=== PATIENT | female | born 1990 | race Caucasian/White ===

== ENCOUNTER 2019-09-21 00:27 | Emergency (ER) | payer BC ==
[2019-09-21 01:27] LABS: #Basophils 0.1 thou/uL (0.0-0.2); #Eosinphils 0.3 thou/uL (0.0-0.7); #Lymphocytes 3.6 thou/uL (1.20-3.40); #Monocytes 0.5 thou/uL (0.11-0.59); #Neutrophils 6.2 thou/uL (1.40-6.50); %Basophils 0.8 % (0.0-1.0); %Eosinophils 2.4 % (0.0-10.0); %Monocytes 4.6 % (0.0-10.0); %Neutrophils 58.2 % (42.0-75.0); Hemoglobin 12.4 g/dL (12.0-16.0); Mean Corpuscular Hemoglobin 30.5 pg (27.0-31.0); Mean Corpuscular Volume 92.6 fL (78.0-98.0); Mean Platelet Volume 7.1 fL (7.4-10.4); Platelet Count 292 thou/uL (130-400); Red Blood Cell (RBC) Count 4.06 mill/uL (4.20-5.40); White Blood Cell (WBC) Count 10.6 thou/uL (4.8-10.8)
[2019-09-21 01:49] LABS: Anion Gap 10 mmol/L (10-20); BUN (Urea Nitrogen) 6 mg/dL (7.0-18.7); Calc. Creatinine Clearance 0 mL/min (70-130); Calcium 9.1 mg/dL (7.8-10.44); Carbon Dioxide 25 mmol/L (22-29); Chloride 107 mmol/L (98-107); Estimated GFR-MDRD Greater than 90; Glucose 84 mg/dL (70-105); Potassium 3.5 mmol/L (3.5-5.1); Sodium 138 mmol/L (136-145)
[2019-09-21 02:35] LABS: Bacteria/HPF None Seen HPF (None Seen); Bilirubin Negative (Negative); Blood, Urine 1+ (Negative); Clarity Turbid (Clear); Glucose, Urine (Dipstick) Normal (Negative); Leukocyte Negative Leu/uL (Negative); Nitrite Negative (Negative); Protein, Urine (Dipstick) Negative (Neg-Trace); RBC/HPF 0-3 HPF (0-3); Squamous Epithelial 0-3 HPF (0-3); Urobilinogen Normal mg/dL (Less than 2); WBC/HPF 0-3 HPF (0-3)
--- NOTE | 2019-09-21 09:08 | ULT ---
PRELIMINARY REPORT/[facility]/EMERGENCY AFTER HOURS PROCEDURE: PROCEDURE INFORMATION: Exam: US , Limited Exam date and time: 09/21/2019 1:38 AM Clinical history: 29 years old, female; Lmp or gestational age (in weeks): 03/27/20; Antepartum compli cations; Hemorrhage; complicated by abdominal or pelvic pain; Lower; Second trimester; Gest ational age or lmp: 13w1d; ; Patient HX: Pelvic cramping pain tonight, light vaginal bleeding TECHNIQUE: Imaging protocol: Real-time ultrasound of the maternal uterus with image documentation. Exam focused on the clinical indication. COMPARISON: No relevant prior studies available. FINDINGS: GESTATION: Gestation: Single living intrauterine gestation. Yolk sac visualized. Heart rate: heart rate 157 beats per minute. Placenta: Posterior placenta. Placental tip 1.8 cm from the internal cervical os. Small avascular hypoechoic area under the placenta likely represents a small subchorionic hematoma. BIOMETRY: Estimated gestational age: Estimated gestational age by ultrasound 13 weeks and 1 day. Gestational age by LMP 13 weeks and 0 days. Size and dates are concordant. Head circumference: Head circumference 8.24 cm, 13 weeks 4 days Abdominal circumference: Abdominal circumference 6.55 cm, 13 weeks 2 days Femur length: Femur length 0.84 cm, 12 weeks 4 days MATERNAL: Cervix: Cervix length 3.3 cm on transabdominal view. IMPRESSION: 1. Single living intrauterine gestation with ultrasound age of 13 weeks and 1 day. 2. Likely small subchorionic hematoma. Thank you for allowing us to participate in the care of your patient. Dictated and Authenticated by: Patti Davenport MD 09/21/2019 2:22 AM Central Time ([place] & [place]) FINAL REPORT TRANSABDOMINAL PELVIC ULTRASOUND WITH FORTUNE SCALE AND COLOR FLOW AND SPECTRAL DOPPLER IMAGING: FINDINGS/IMPRESSION: I agree with the preliminary report given by Jose. POS: [facility]
== END 2019-09-21 02:48 | disposition home or self-care (01) ==
LOC: ERS 00:27
DX: O20.8 Other hemorrhage in early pregnancy (principal); Z3A.13 13 weeks gestation of pregnancy
CPT/HCPCS: 36415; 76856; 80048; 81003; 81015; 84702; 85025; 86900; 86901; 93976

== ENCOUNTER 2020-03-26 01:23 | Outpatient (CLI) | payer BC, OTHER ==
[2020-03-26 17:39] LABS: SARS-CoV-2 MS2 Positive; SARS-CoV-2 N Gene Negative; SARS-CoV-2 S Gene Negative; SARS-CoV-2 orf1ab Negative
== END 2020-03-26 01:24 | disposition home or self-care (01) ==
LOC: ERS 01:23
PROVIDERS: ATTEND Student in an Organized Health Care Education/Training Program
DX: Z20.828 Contact with and (suspected) exposure to other viral communicable diseases (principal)
CPT/HCPCS: 87635; U0003

== ENCOUNTER 2020-03-27 05:57 | Day surgery (SDC) | payer BC ==
[2020-03-27 06:22] VITALS: BMI 30.1
[2020-03-27] MEDS ORDERED: hydrALAZINE 20 MG/ML VIAL SLOW IVP PRN (07:28)
--- NOTE | 2020-03-27 08:06 | PRG ---
DATE OF SERVICE: 03/27/2020 PRIMARY OB: Rupinder Ortiz MD CHIEF COMPLAINT: Abdominal pain. HISTORY OF PRESENT ILLNESS: The patient is a 30-year-old G2, P0 female with an intrauterine at 39 weeks and 6 days, who is presenting to Labor and Delivery with increasing abdominal pains. The patient reports that they are about every 10 to 15 minutes. She denies any leakage of fluid. She does report she has had some vaginal bleeding that she has noticed with wiping. The patient denies fever, headache, chest pain, shortness of breath, nausea, vomiting, diarrhea, constipation, new rashes, hip problems, knee problems, muscle weakness, change in her discharge, or urinary urgency or frequency. PAST MEDICAL HISTORY: Negative. PAST SURGICAL HISTORY: She has had tonsillectomy and D and C. ALLERGIES: NO KNOWN DRUG ALLERGIES. SOCIAL HISTORY: The patient is a former smoker, a pack per day, and quit at the beginning of this . OB LABS: Unavailable at the time of dictation. MEDICATIONS: vitamins. REVIEW OF SYSTEMS: Per HPI. PHYSICAL EXAMINATION: VITAL SIGNS: Blood pressure is 100/64, heart rate of 100, respiratory rate of 16, saturating 98% to 99% on room air, temperature 97.9. GENERAL: She appears to be in no acute distress. She is alert and oriented, cooperative and pleasant to interact with. HEAD: Normocephalic and atraumatic. LUNGS: Clear to auscultation bilaterally. HEART: Regular rate and rhythm. ABDOMEN: Gravid and soft. She does have some tenderness in the right lower quadrant with deviation of the uterus. EXTREMITIES: Nontender and nonedematous. PELVIC: Cervical exam per nursing staff is 3, 75, and -2 station. heart tracing shows the fetus with a baseline in the 130s with moderate long-term variability, positive 15 x 15 accelerations, no decelerations. Tocometer showing some irritability, but no regular contraction pattern. ASSESSMENT AND PLAN: The patient is a 30-year-old G2, P0 female with an intrauterine at 39 weeks and 6 days, here to evaluate for labor. She has no active or obvious evidence of labor at this time. Plan is to re-examine her for cervical change in 2 to 3 hours from the time of her initial exam. She is scheduled for an induction of labor tomorrow. She will be discharged home if she has no evidence of active labor today. Fetus has a category [address] Zamorano will be the oncoming physician to make disposition and should the patient stay, Dr. Ortiz will be taking over care. Job ID: [id number]
--- NOTE | 2020-03-27 09:00 | PDOC.EVN ---
Event Note - Event Note Event Note: Pt. comfortable. Rested, but did not walk. SVE by me unchanged, / KEVIN Fhts 120's, reassuring. UCs 3-6 mins. Plan: Home to rest with precautions. Set for induction in AM.
== END 2020-03-27 09:05 | disposition home or self-care (01) ==
LOC: L&D/OP 05:57
PROVIDERS: ATTEND Student in an Organized Health Care Education/Training Program
DX: O99.89 Other specified diseases and conditions complicating pregnancy, childbirth and the puerperium (principal); R10.9 Unspecified abdominal pain; Z3A.39 39 weeks gestation of pregnancy; Z87.891 Personal history of nicotine dependence

== ENCOUNTER 2020-03-28 02:47 | Inpatient (IN) | payer BC ==
[2020-03-28] MEDS ORDERED: Misoprostol 100 MCG TAB VAG SCH (03:00)
[2020-03-28] MEDS ORDERED: hydrALAZINE 20 MG/ML VIAL SLOW IVP PRN ×2 (03:02→15:42)
[2020-03-28] MEDS ORDERED: Methylergonovine 0.2 MG/ML VIAL IM PRN (03:02)
[2020-03-28] MEDS ORDERED: Misoprostol 200 MCG TAB PR PRN (03:02)
[2020-03-28] MEDS ORDERED: Acetaminophen 500 MG TAB PO PRN (03:02)
[2020-03-28] MEDS ORDERED: Butorphanol Tartrate 1 MG/ML VIAL SLOW IVP PRN (03:02)
[2020-03-28] MEDS ORDERED: Zolpidem Tartrate 5 MG TAB PO PRN (03:02)
[2020-03-28] MEDS ORDERED: HYDROcodone/Acetaminophen 5/325 mg Tablet PO PRN ×3 (03:02→15:42)
[2020-03-28] MEDS ORDERED: Carboprost 250 MCG/ML AMP IM PRN (03:02)
[2020-03-28] MEDS ORDERED: Ibuprofen 800 MG TAB PO PRN (03:02)
[2020-03-28] MEDS ORDERED: NS w/ Oxytocin 10 units 500 ML IV SCH (03:02)
[2020-03-28] MEDS ORDERED: Ondansetron PF 4 MG/2 ML Vial IVP PRN ×3 (03:02→15:42)
[2020-03-28] MEDS ORDERED: Promethazine HCl 25 MG/ML VIAL IM PRN ×2 (03:02→04:55)
[2020-03-28] MEDS ORDERED: NS / Oxytocin 40 units/1000ml 1,000 ML IV PRN (03:02)
[2020-03-28] MEDS ORDERED: Diphenoxylate HCl/Atropine Tablet PO PRN (03:02)
[2020-03-28] MEDS ORDERED: Lidocaine 1% (PF) 30 ML VIAL SC PRN (03:02)
[2020-03-28] MEDS: Lactated Ringer's 1,000 ML IV SCH ×2 (03:40→04:53)
[2020-03-28 04:00] VITALS: BMI 30.6
[2020-03-28 04:03] LABS: Hemoglobin 12.9 g/dL (12.0-16.0); Mean Corpuscular HGB CONC 33.5 g/dL (32.0-36.0); Mean Corpuscular Hemoglobin 31.6 pg (27.0-31.0); Mean Corpuscular Volume 94.1 fL (78.0-98.0); Mean Platelet Volume 9.3 fL (7.4-10.4); Platelet Count 282 thou/uL (130-400); RBC Distribution Width 12.7 % (11.5-14.5); White Blood Cell (WBC) Count 23.2 thou/uL (4.8-10.8)
[2020-03-28 04:35] LABS: Hep B Surf Ag Non-Reactive S/CO (NonReactive); Syphilis Antibody Nonreactive (Nonreactive); Syphilis Antibody Index 0.02 S/CO (<1.00 Non-Reactive)
[2020-03-28] MEDS: Fentanyl 4 mcg/Bupivacaine 0.1% Cassette 100 ML EPIDURAL SCH ×2 (04:42→12:17)
[2020-03-28] MEDS ORDERED: EPHEDRINE 25 MG/5 ML SYRINGE SLOW IVP PRN (04:55)
[2020-03-28] MEDS ORDERED: diphenhydrAMINE 50 MG/ML VIAL IVP PRN (04:55)
[2020-03-28] MEDS ORDERED: Naloxone HCl 0.4 mg/ml Vial IVP PRN ×2 (04:55)
[2020-03-28] MEDS ORDERED: Lactated Ringer's 500 ML IV PRN (04:55)
[2020-03-28] MEDS ORDERED: Acetaminophen 325 MG TAB PO PRN (04:55)
[2020-03-28] MEDS ORDERED: Communication Order-Pharmacy FS SCH (05:00)
[2020-03-28] MEDS ORDERED: EPHEDRINE 25 MG/5 ML SYRINGE ONE (09:18)
[2020-03-28] MEDS ORDERED: Bupivacaine/Epinephrine 0.25% 30 ML VIAL ONE (09:18)
[2020-03-28] MEDS ORDERED: Fentanyl 4 mcg/Bup 0.1% Cadd 100 ML ONE (12:05)
--- NOTE | 2020-03-28 13:14 | PDOC.OPDEL ---
OB Operative/Delivery Note Delivery Dr/Surgeon: Diana Assist: n/a Pre-Delivery Diagnosis: active labor, non-reassuring tracing Procedure/Post Delivery Dx: operative vaginal delivery (FAVD) Weeks gestation: 40 Anesthesia: epidural - Findings A Sex: male - 1 min: 8 - 5 min: 9 - Additional Findings/Plan Placenta delivered: spontaneous Repaired Obstetrical Laceration: 2nd degree Estimated blood loss: 500 Post delivery plan: routine recovery
--- NOTE | 2020-03-28 13:14 | PDOC.LDHP ---
Labor and Delivery H&P HPI: 30yo at 40w0d with c/o painful contractions. Current gestational age (weeks): 40 Due date: 03/28/20 Dating criteria: last menstrual period Grav: 2 Para: 0 Current complications: none Abnormal US findings: No Past Medical History: denies Current medications: pre-jessica vitamins Previous surgical history: dilation and curettage Allergies/Adverse Reactions: Allergies Allergy/AdvReac Type Severity Reaction Status Date / Time No Known Allergies Allergy Verified 03/28/20 04:01 Social history: none - Physical Exam Vital signs reviewed and normal: yes General: NAD Heart: RRR Lungs: CTAB Abdomen: gravid Extremeties: no edema FHT: category 1 [place] contractions every: 3-5min - Vaginal Exam cm dilated: 8 Effacement: 90% Station: 0 (arom clear) - OB Labs Blood type: A RH: positive Antibody Screen: negative HIV: negative RPR: negative HEPSAg: negative 1 hour GCT: negative GBS: negative Urine drug screen: negative Rubella: immune - Assessment L&D Assessment: term patient in labor - Plan Plan: admit to L&D, labor augmentation if indicated, informed consent obtained, anesthesia consult for pain management
[2020-03-28] MEDS ORDERED: NS / Oxytocin 40 units/1000ml 1,000 ML ONE (14:26)
[2020-03-28] MEDS ORDERED: NS / Oxytocin 40 units/1000ml 1,000 ML IV SCH (15:42)
[2020-03-28] MEDS ORDERED: Benzocaine-Menthol 82.5 ML CAN TOP PRN (15:42)
[2020-03-28] MEDS ORDERED: diphenhydrAMINE 25 MG CAP PO PRN (15:42)
[2020-03-28] MEDS ORDERED: Adacel (T-DAP) 0.5 ML SYRINGE IM ONE (15:42)
[2020-03-28] MEDS ORDERED: Lanolin Ointment 7 GM TUBE TOP PRN (15:42)
[2020-03-28] MEDS ORDERED: Preparation H Ointment 28 GM TUBE PR PRN (15:42)
[2020-03-28] MEDS ORDERED: Bisacodyl 10 MG SUPP PR PRN (15:42)
[2020-03-28] MEDS ORDERED: Milk Of Magnesia 30 ML UDCUP PO PRN (15:42)
[2020-03-28] MEDS: Ferrous Sulfate 325 MG TAB PO SCH (18:10)
[2020-03-28] MEDS: Ibuprofen 800 MG TAB PO SCH (19:22)
[2020-03-28] MEDS: Docusate Calcium (SURFAK) 240 MG CAP PO SCH (20:25)
[2020-03-29] MEDS: Ibuprofen 800 MG TAB PO SCH ×2 (05:33→13:49)
[2020-03-29] MEDS ORDERED: Prenatal Vitamin 1 TAB PO SCH (09:00)
[2020-03-29] MEDS: Docusate Calcium (SURFAK) 240 MG CAP PO SCH (09:25)
[2020-03-29] MEDS: Ferrous Sulfate 325 MG TAB PO SCH ×2 (09:25→16:16)
[2020-03-29 11:54] VITALS: BP 102/57; TEMP 98
--- NOTE | 2020-03-29 13:45 | PDOC.PP ---
Post Progress Note Post Day #: 1 PO intake tolerated: yes Flatus: yes Ambulation: yes Vital Signs (12 hours) Temp Pulse Resp BP BP Pulse Ox 03/29/20 11:53 98.0 F 95 20 102/57 L 03/29/20 08:30 97.6 F 104 H 20 106/71 99 03/29/20 05:30 97.7 F 92 18 111/75 95 Weight Weight 173 lb - Physical Examination General: NAD Respiratory: non-labored breathing Abdominal: no distention, appropriately TTP Fundus firm & at: umb Skin: no rash Neurological: no gross focal deficits Psychiatric: normal affect Result Diagrams: 03/28/20 03:39 Additional Labs: Post Labs Blood Type A POSITIVE 03/28/20 03:39 Hep Bs Antigen Non-Reactive S/CO (NonReactive) 03/28/20 03:39 - Assessment/Plan PPD1 s/p FAVD VSSAF Doing well, lochia < menses Rh pos RImm DC home FU 6w
== END 2020-03-29 18:20 | disposition home or self-care (01) | DRG 807 ==
LOC: L&D-LIB 02:47 → EDSTATUS 14:45 → 3SW 14:48
PROVIDERS: ADMIT Student in an Organized Health Care Education/Training Program; ATTEND Student in an Organized Health Care Education/Training Program
PROC: 10D07Z8 Extraction of Products of Conception, Other, Via Natural or Artificial Opening (ICD-10-PCS; principal; 2020-03-28)
PROC: 0HQ9XZZ Repair Perineum Skin, External Approach (ICD-10-PCS; 2020-03-28)
DX: O76 Abnormality in fetal heart rate and rhythm complicating labor and delivery (principal); Z37.0 Single live birth; O77.0 Labor and delivery complicated by meconium in amniotic fluid; O70.1 Second degree perineal laceration during delivery; Z3A.40 40 weeks gestation of pregnancy
CPT/HCPCS: 85027; 86780; 86850; 86900; 86901; 87340; 87635; 90715; 99282; J0595; J2590; U0003